=== PATIENT | female | born 1980 | race Two or more races ===

== ENCOUNTER 2019-04-14 19:42 | Emergency (ER) | payer MEDICAID, OTHER ==
[~2019-04-14] VITALS: Ht 152.4 cm; Wt 78.0 kg
[2019-04-14 20:00] VITALS: BP 138/95
[2019-04-14] MEDS ORDERED: ALBUTEROL SULF 2.5 MG/0.5ML(0.5%) NEB SOLN NEB ONE (20:15)
[2019-04-14] MEDS ORDERED: IPRATROPIUM BROM 0.5 MG/2.5ML INH SOL NEB ONE (20:15)
== END 2019-04-14 22:52 | disposition home or self-care (01) ==
LOC: ER 19:51
DX: J45.909 Unspecified asthma, uncomplicated (principal)
CPT/HCPCS: 94640; 99283; J7611; J7644